=== PATIENT | female | born 1995 | race Caucasian/White ===

== ENCOUNTER 2017-05-28 14:21 | Emergency (ER) | payer OTHER ==
[~2017-05-28] VITALS: Ht 160 cm; Wt 75.0 kg
[2017-05-28 14:23] VITALS: BP 135/73; PULSE 76; TEMP 98.3
== END 2017-05-28 15:33 | disposition home or self-care (01) ==
LOC: COL.ER 14:21
DX: S61.215A Laceration without foreign body of left ring finger without damage to nail, initial encounter (principal); F17.210 Nicotine dependence, cigarettes, uncomplicated; Z23 Encounter for immunization; W26.9XXA Contact with unspecified sharp object(s), initial encounter; Y93.G1 Activity, food preparation and clean up

== ENCOUNTER 2018-06-01 19:58 | Emergency (ER) | payer SELFPAY ==
[~2018-06-01] VITALS: Ht 157.5 cm; Wt 70.0 kg
[2018-06-01 20:06] VITALS: TEMP 98.5
[2018-06-01 20:41] LABS: COLLECTION METHOD CLEAN CATCH
[2018-06-01 20:44] LABS: BASO % 0.5 % (0.0-2.0); GRAN # 5.8 (1.4-6.5); HEMATOCRIT 41.9 % (37.0-47.0); HEMOGLOBIN 14.5 g/dl (12.5-16.0); LYMPH # 2.4 (1.2-3.4); LYMPH % 27.5 % (20.0-51.0); MEAN CELL VOLUME 85 fl (80.0-100.0); MEAN CORPUSCULAR HEMOGLOBIN 29 pg (27.0-31.0); MEAN CORPUSCULAR HGB CONC 35 g/dl (33.0-37.0); MEAN PLATELET VOLUME 10.6 fl (7.4-10.4); MONO # 0.4 (0.1-0.6); MONO % 4.5 % (1.7-9.3); PLATELET COUNT 256 K/mm3 (130-400); RED BLOOD COUNT 4.95 M/mm3 (4.10-5.30); REDCELL DISTRIBUTION WIDTH-CV 12.9 % (11.5-14.5)
[2018-06-01 20:51] LABS: MUCOUS Present /lpf; PH 5 (5-8); SQUAMOUS EPITHELIAL 0-2 /hpf; URINE APPEARANCE Hazy; URINE BACTERIA Rare /hpf; URINE BILIRUBIN Negative (NEGATIVE); URINE BLOOD Negative (NEGATIVE); URINE COLOR Yellow; URINE GLUCOSE Negative (NEGATIVE); URINE KETONE Negative (NEGATIVE); URINE LEUKOCYTE ESTERASE 1+ (NEGATIVE); URINE NITRATE Negative (NEGATIVE); URINE PROTEIN(semi-quant) Negative (NEGATIVE); URINE UROBILINOGEN Negative (NEGATIVE)
[2018-06-01 21:15] LABS: ALBUMIN 3.9 gm/dL (3.5-5.0); BILIRUBIN,TOTAL 0.4 mg/dL (0.0-1.0); CALCIUM 9.4 mg/dL (8.4-10.2); CREATININE, serum 0.63 mg/dL (0.52-1.25); POTASSIUM 3.6 mmol/L (3.4-5.0)
[2018-06-01] MEDS ORDERED: CIPRO 500MG TA500 MG PO (21:27)
[2018-06-01 22:30] VITALS: BP 116/71; PULSE 84
== END 2018-06-01 22:30 | disposition home or self-care (01) ==
LOC: COL.ER 19:58
PROVIDERS: Family Medicine
DX: N39.0 Urinary tract infection, site not specified (principal); N12 Tubulo-interstitial nephritis, not specified as acute or chronic
CPT/HCPCS: J0696; J2270; J2405; J7030

== ENCOUNTER 2018-12-11 16:18 | Emergency (ER) | payer SELFPAY ==
[~2018-12-11] VITALS: Ht 157.5 cm; Wt 77.3 kg
[~2018-12-11 16:18] MED LIST: CIPRO 500MG TA500 MG PO
[2018-12-11 16:30] VITALS: TEMP 97.9
[2018-12-11 17:12] LABS: BASO % 0.3 % (0.0-2.0); EOS % 0.1 % (0-4.0); GRAN # 6.4 (1.4-6.5); GRAN % 71.2 % (42.2-75.2); HEMATOCRIT 47.3 % (37.0-47.0); HEMOGLOBIN 16.2 g/dl (12.5-16.0); LYMPH % 21.9 % (20.0-51.0); MEAN CELL VOLUME 85 fl (80.0-100.0); MEAN CORPUSCULAR HEMOGLOBIN 29 pg (27.0-31.0); MEAN CORPUSCULAR HGB CONC 34 g/dl (33.0-37.0); MONO # 0.5 (0.1-0.6); MONO % 5.9 % (1.7-9.3); PLATELET COUNT 276 K/mm3 (130-400); RED BLOOD COUNT 5.59 M/mm3 (4.10-5.30); REDCELL DISTRIBUTION WIDTH-CV 12.6 % (11.5-14.5)
[2018-12-11 17:16] LABS: ALBUMIN 4.8 gm/dL (3.5-5.0); BILIRUBIN,TOTAL 0.7 mg/dL (0.0-1.0); C-REACTIVE PROTEIN 0.8 mg/dL (0.0-0.9); CALCIUM 9.5 mg/dL (8.4-10.2); CREATININE, serum 0.65 mg/dL (0.52-1.25); POTASSIUM 3.6 mmol/L (3.4-5.0); TOTAL PROTEIN 8.6 gm/dL (6.4-8.2)
[2018-12-11] MEDS ORDERED: AMOXICILLIN 8751 TAB PO (17:32)
[2018-12-11] MEDS ORDERED: NORCO 325 MG-51 TAB PO (17:32)
[2018-12-11 17:59] LABS: COLLECTION METHOD CLEAN CATCH
[2018-12-11 18:05] LABS: MUCOUS Present /lpf; PH 6 (5-8); SQUAMOUS EPITHELIAL 0-2 /hpf; URINE APPEARANCE Clear; URINE BACTERIA None Seen /hpf; URINE BILIRUBIN Negative (NEGATIVE); URINE BLOOD Negative (NEGATIVE); URINE COLOR Yellow; URINE GLUCOSE Negative (NEGATIVE); URINE KETONE Negative (NEGATIVE); URINE LEUKOCYTE ESTERASE Negative (NEGATIVE); URINE NITRATE Negative (NEGATIVE); URINE PROTEIN(semi-quant) Negative (NEGATIVE); URINE RBC 0-2 /hpf; URINE UROBILINOGEN Negative (NEGATIVE)
[2018-12-11 18:41] VITALS: BP 119/68
[2018-12-11 19:17] VITALS: PULSE 82
== END 2018-12-11 19:17 | disposition home or self-care (01) ==
LOC: COL.ER 16:18
PROVIDERS: Family Medicine
DX: N61.0 Mastitis without abscess (principal); F17.210 Nicotine dependence, cigarettes, uncomplicated
CPT/HCPCS: J0696; J2270; J2405; J7030

== ENCOUNTER → 2018-12-25 | Outpatient (CLI) | payer SELFPAY ==
[~2018-12-25] MED LIST changes: +AMOXICILLIN 8751 TAB PO; +NORCO 325 MG-51 TAB PO
== END ==
LOC: ZCOL.LAB 17:10
DX: Z86.19 Personal history of other infectious and parasitic diseases (principal)

== ENCOUNTER → 2018-12-26 | Outpatient (CLI) | payer SELFPAY | LOC: MC.RAD 09:59 | DX: N61.0 Mastitis without abscess (principal) ==

== ENCOUNTER 2020-02-11 10:19 | Emergency (ER) | payer SELFPAY ==
[~2020-02-11] VITALS: Ht 157.5 cm; Wt 89.1 kg
[2020-02-11 10:26] VITALS: BP 121/74; TEMP 97.9
[2020-02-11 10:51] LABS: BASO # 0.1 (0.0-0.2); BASO % 0.7 % (0.0-2.0); EOS # 0.3 (0.0-0.7); GRAN # 5.6 (1.4-6.5); GRAN % 65.4 % (42.2-75.2); HEMATOCRIT 47.1 % (37.0-47.0); HEMOGLOBIN 15.7 g/dl (12.5-16.0); LYMPH # 2.2 (1.2-3.4); LYMPH % 25.4 % (20.0-51.0); MEAN CELL VOLUME 85 fl (80.0-100.0); MEAN CORPUSCULAR HEMOGLOBIN 28 pg (27.0-31.0); MEAN CORPUSCULAR HGB CONC 33 g/dl (33.0-37.0); MEAN PLATELET VOLUME 11.2 fl (7.4-10.4); MONO # 0.4 (0.1-0.6); MONO % 4.9 % (1.7-9.3); PLATELET COUNT 281 K/mm3 (130-400); RED BLOOD COUNT 5.52 M/mm3 (4.10-5.30); REDCELL DISTRIBUTION WIDTH-CV 13.2 % (11.5-14.5)
[2020-02-11 11:08] LABS: ALANINE AMINOTRANSFERASE 24 U/L (4-34); ALBUMIN 4.3 gm/dL (3.5-5.0); ALKALINE PHOSPHATASE 106 U/L (50-136); ANION GAP 11 mmol/L (7-16); AST,SGOT 21 U/L (15-37); BILIRUBIN,TOTAL 0.3 mg/dL (0.0-1.0); BLOOD UREA NITROGEN 11 mg/dL (7-17); CALCIUM 9.6 mg/dL (8.4-10.2); CARBON DIOXIDE 22 mmol/L (22-30); CHLORIDE 108 mmol/L (98-107); CREATININE, serum 0.56 (0.52-1.25); GLUCOSE 97 mg/dL (74-106); POTASSIUM 3.9 mmol/L (3.4-5.0); SODIUM 141 mmol/L (137-145); TOTAL PROTEIN 7.7 gm/dL (6.4-8.2)
[2020-02-11 11:26] LABS: HCG,QUANTITATIVE < 2 mIU/mL (0-5)
[2020-02-11 11:56] VITALS: PULSE 63
== END 2020-02-11 11:56 | disposition home or self-care (01) ==
LOC: COL.ER 10:19
PROVIDERS: Emergency Medicine
DX: N93.8 Other specified abnormal uterine and vaginal bleeding (principal)

== ENCOUNTER → 2024-08-08 | Outpatient (CLI) | payer MEDICAID ==
[~2024-08-08] MED LIST changes: +IBU800 M1 PO; +PNV-SELECT1 TAB PO
== END ==
LOC: DIA.ED 10:06
DX: O24.419 Gestational diabetes mellitus in pregnancy, unspecified control (principal)
CPT/HCPCS: G0108

== ENCOUNTER → 2024-08-29 | Outpatient (CLI) | payer MEDICAID | LOC: DIA.ED 10:57 | DX: O24.419 Gestational diabetes mellitus in pregnancy, unspecified control (principal) | CPT/HCPCS: G0108 ==

== ENCOUNTER 2024-09-05 23:11 | Outpatient (CLI) | payer MEDICAID ==
[~2024-09-05] VITALS: Ht 157.5 cm; Wt 98.2 kg
--- NOTE | 2024-09-05 23:15 | NUR ---
2315- PT PRESENTS TO LDR COMPLAINING OF LEAKING AMNIOTIC FLUID, TO LR4 PER WHEELCHAIR, CHANGED INTO GOWN. 2318- EFM X2 APPLIED. PT REPORTS LEAKING FLUID AFTER SQUATTING DOWN AT 2130 TONIGHT. SHE REPORTS SOME PRESSURE IN HER LOWER ABDOMEN BUT NO CONTRACTIONS. STATES SHE IS FEELING HER BABY MOVE NORMALLY. SHE ALSO DENIES VAGINAL BLEEDING. PLAN OF CARE FOR LABOR CHECK DISCUSSED AND QUESTIONS ANSWERED. PT VERBALIZES UNDERSTANDING AND GIVES CONSENT FOR CERVICAL EXAMS. 2330- AMNITRACE NEGATIVE, NO POOLING OF FLUID NOTED. SVE BY THIS NURSE /- WITH NO BLEEDING OR FLUID POOLING NOTED WITH EXAM. PT IS AGREEABLE WITH WAITING AN HOUR AND RECHECKING CERVIX TO BE SURE THERE IS NO DILATION CHANGE. 2340- NURSING ADMISSION HISTORY AND ASSESSMENT COMPLETE. 0000- MONITORS ADJUSTED. 0040- PT REPORTS NOT FEELING ANY CONTRACTIONS. "JUST SOME PRESSURE." SVE BY THIS NURSE WITH NO CHANGE AND NO POOLING OF FLUID. PLAN OF CARE FOR DISCHARGE DISCUSSED AND PT FEELS COMFORTABLE GOING HOME. DISCUSSED SHE WILL HAVE SOME DISCHARGE FROM LUBRICATION AND ALSO SOME SPOTTING FOR 24-48 HOURS WOULD BE NORMAL AFTER CERVICAL EXAM. PT VERBALIZES UNDERSTANDING. 0042- PT OFF MONITORS FOR DISMISSAL. 0045- DR AGUERO CALLED AND UPDATED CHARTED, ORDERS RECEIVED. 0100- DISCHARGE INSTRUCTIONS GIVEN. QUESTIONS ANSWERED. PT VERBALIZES UNDERSTANDING AND SIGNS DISCHARGE PAPERWORK. PT DISMISSED TO HOME BY HERSELF, AMBULATORY.
[2024-09-05 23:30] VITALS: BP 130/77; PULSE 107; TEMP 98
[2024-09-05] MEDS ORDERED: LR 1,000 ML IV PRN (23:30)
[2024-09-05] MEDS ORDERED: LANTUS100 U/ML SQ (23:53)
[2024-09-06] VITALS: PULSE 110
[2024-09-06 00:40] VITALS: BP 117/67; PULSE 97
== END 2024-09-06 01:00 | disposition home or self-care (01) ==
LOC: LDRO 23:11
DX: O42.913 Preterm premature rupture of membranes, unspecified as to length of time between rupture and onset of labor, third trimester (principal); Z3A.34 34 weeks gestation of pregnancy

== ENCOUNTER → 2024-09-19 | Outpatient (CLI) | payer MEDICAID ==
[~2024-09-19] MED LIST changes: +LANTUS100 U/ML SQ
== END ==
LOC: DIA.ED 10:15
DX: O24.419 Gestational diabetes mellitus in pregnancy, unspecified control (principal); Z79.4 Long term (current) use of insulin
CPT/HCPCS: G0108